=== PATIENT | male | born 1955 | race Two or more races ===

== ENCOUNTER 2017-09-06 08:34 | Outpatient (CLI) | payer OTHER ==
[2017-09-06 08:55] LABS: URINE MICROSCOPIC INDICATED? YES
[2017-09-06 09:24] LABS: URINE BILIRUBIN NEGATIVE (NEGATIVE); URINE BLOOD MODERATE (NEGATIVE); URINE GLUCOSE (UA) NEGATIVE (NEGATIVE); URINE KETONE NEGATIVE (NEGATIVE); URINE LEUKOCYTE ESTERASE NEGATIVE (NEGATIVE); URINE NITRATE NEGATIVE (NEGATIVE); URINE PH 5.5 (4.6 - 8.0); URINE PROTEIN NEGATIVE (NEGATIVE); URINE UROBILINOGEN 0.2 E.U./dL (0.2 - 1.0)
[2017-09-06 09:27] LABS: URINE CLARITY CLEAR (CLEAR); URINE COLOR YELLOW
[2017-09-06 09:31] LABS: URINE BACTERIA OCCASIONAL /hpf (NONE SEEN); URINE EPITHELIAL CELLS FEW /lpf (FEW); URINE WBC 0-2 /hpf (0-5)
[2017-09-06 09:35] LABS: ALB/GLOB RATIO 1.2 (1.0-1.8); ALBUMIN 3.8 gm/dL (4.2-5.5); BILIRUBIN,DIRECT 0.24 mg/dL (0.0-0.2); BILIRUBIN,TOTAL 0.8 mg/dL (0.3-1.0); TOTAL PROTEIN,SERUM 7.1 gm/dL (6.0-8.3)
--- NOTE | 2017-09-06 10:26 | Diagnostic Imaging Report ---
Ultrasound abdomen HISTORY: Abnormal liver enzymes COMPARISON: None Technique: Sonography of the abdomen was performed in multiple planes. FINDINGS: Exam is limited due to bowel gas and body habitus. The liver demonstrates increased echogenicity and measures 20.2 cm. The liver margin is not well-defined limiting assessment for focal lesions. The gallbladder was not visualized. The common bile duct was also not visualized. The pancreas was also not well visualized. The right kidney measures 12.7 x 5.9 cm. The left kidney measures 13.6 x 5.5 cm. No evidence of focal lesions or hydronephrosis. The spleen measures 12.3 cm. IMPRESSION: Limited exam due to bowel gas and body habitus. Hepatomegaly with increased echogenicity which may be due to fatty infiltration, correlate clinically. The gallbladder was not visualized. This may be due to gallbladder contraction a possible previous gallbladder removal, correlate clinically. The common bile duct was also not visualized. Mildly prominent renal sizes, nonspecific. No hydronephrosis. Borderline prominent spleen.
[2017-09-07 13:16] LABS: AFP TUMOR MARKER 4.3 ng/mL (0.0-8.3); HEP A AB IGM Negative (Negative); HEP B CORE IGM Negative (Negative); HEP B SURFACE AG QL Negative (Negative); HEP C ANTIBODY 0.1 s/co ratio (0.0-0.9); IRON LC 55 ug/dL (38-169); TIBC (LC) 301 ug/dL (250-450); UIBC 246 ug/dL (111-343)
== END 2017-09-06 09:45 | disposition home or self-care (01) ==
LOC: LAB 08:34
PROVIDERS: ATTEND Family Medicine
DX: R16.0 Hepatomegaly, not elsewhere classified (principal); R79.89 Other specified abnormal findings of blood chemistry
CPT/HCPCS: 36415-UA; 76700-TC; 80074-90; 80076-TC; 81001-TC; 82105-90; 82728-90; 83540-90; 83550-90; 84443-TC; 87086-90